=== PATIENT | male | born 1955 | race Caucasian/White ===

== ENCOUNTER 2020-06-03 12:04 | Inpatient (IN) ==
[2020-06-03] MEDS ORDERED: ZOFRAN INJ 4 MG VIAL IVP PRN (12:44)
[2020-06-03] MEDS ORDERED: TUSSIONEX PENNKINETIC SUSP PO PRN (12:44)
[2020-06-03 13:12] LABS: BASOPHILS % (AUTO) 0.1 % (0.2-1.0); HEMATOCRIT 46.9 % (42.0-54.0); HEMOGLOBIN 16.5 g/dL (13.5-18.0); LYMPHOCYTES # (AUTO) 0.7 X10^3/uL (1.3-2.9); LYMPHOCYTES % (AUTO) 6.7 % (21.0-51.0); MEAN CORPUSCULAR HEMOGLOBIN 29.3 pg (27.0-34.0); MEAN CORPUSCULAR HGB CONC 35.2 g/dL (33.0-35.0); MEAN CORPUSCULAR VOLUME 83.2 fL (80.0-100.0); MEAN PLATELET VOLUME 7.3 fL (7.4-11.0); MONOCYTES # (AUTO) 0.8 x10^3/uL (0.3-0.8); MONOCYTES % (AUTO) 8.1 % (0.0-13.0); NEUTROPHILS # (AUTO) 8.6 x10^3/uL (2.2-4.8); NEUTROPHILS % (AUTO) 85.1 % (42.0-75.0); PLATELET COUNT 192 X10^3/uL (150.0-450.0); RED BLOOD COUNT 5.64 X10^6/uL (4.7-6.0); WHITE BLOOD COUNT 10.1 X10^3/uL (3.6-10.0)
--- NOTE | 2020-06-03 13:20 | RAD ---
HISTORYSOB, BRONCHITISSTUDYCHEST, 1 VIEWCOMPARISONNone availableFINDINGSThe trachea is midline. The cardiac silhouette is unremarkable . The lungs demonstrate some increased interstitial infiltrates in the left lung base suggesting early pneumonia. The bony thorax is unremarkable.IMPRESSIONLeft lower lobe interstitial infiltrates suggesting early pneumonia. Continued follow-up is recommendedElectronically signed by: HUSEYIN RUBIN (Jun 03, 2020 13:19:41)
[2020-06-03 13:23] LABS: ALANINE AMINOTRANSFERASE 25 Units/L (12-78); ALBUMIN 3.8 g/dL (3.4-5.0); ALKALINE PHOSPHATASE 73 Units/L (46-116); ASPARTATE AMINO TRANSFERASE 18 Units/L (15-37); BLOOD UREA NITROGEN 34 mg/dL (7-18); CALCIUM 8.7 mg/dL (8.5-10.1); CARBON DIOXIDE 21.7 mmol/L (21-32); CHLORIDE 99 mmol/L (98-107); COR NA(FOR HYPERGLY) 134 mmol/L (136-145); MAGNESIUM 2.3 mg/dL (1.7-2.9); SODIUM 133 mmol/L (136-145); TOTAL PROTEIN 7.8 g/dL (6.4-8.2); eGFR NON BLACK RACES 41 (>60)
[2020-06-03 13:31] LABS: ABG BASE EXCESS -3.4 mmol/L (-2.0-2.0); ABG HCO3 19.9 mmol/L (22-26)
[2020-06-03] MEDS ORDERED: REMDESIVIR 200 MG in NS 250 ML IV 250 ML IV SCH (14:00)
[2020-06-03] MEDS ORDERED: DUONEB 0.5 MG/3 MG (3 mL) NEB ONE (14:19)
[2020-06-03] MEDS: DUONEB 0.5 MG/3 MG (3 mL) NEB SCH ×3 (14:25→21:00)
[2020-06-03] MEDS: PULMICORT NEB TX 0.5 MG NEB SCH ×2 (14:25→21:00)
[2020-06-03] MEDS: ZITHROMAX INJ 500 MG VIAL 500 MG in D5W 250 ML IV 250 ML IV SCH (15:15)
[2020-06-03] MEDS: PROTONIX INJ 40 MG VIAL IVP SCH (15:15)
[2020-06-03] MEDS: SOLU-Medrol 125 MG VIAL IVP SCH ×3 (15:15→21:05)
[2020-06-03] MEDS: ROBITUSSIN DM PO SCH ×3 (15:15→20:45)
[2020-06-03] MEDS: NS 1000 ML 1,000 ML IV SCH (15:15)
[2020-06-03 16:10] VITALS: BMI 25.0
[2020-06-03 17:48] LABS: BILIRUBIN,URINE NEGATIVE (NEGATIVE); BLOOD/HEMOGLOBIN,URINE 1+ (NEGATIVE); GLUCOSE, URINE 4+ (NEGATIVE); KETONES,URINE NEGATIVE (NEGATIVE); LEUKOCYTE ESTERASE ,URINE NEGATIVE (NEGATIVE); NITRITES,URINE NEGATIVE (NEGATIVE); PROTEIN,URINE 2+ (NEGATIVE); UROBILINOGEN,URINE NORMAL (NORMAL)
[2020-06-03 17:57] LABS: AMORPHOUS SEDIMENT,UR 1+ /HPF (NEGATIVE); APPEARANCE,URINE SLIGHTLY HAZY (CLEAR); BACTERIA,URINE TRACE /HPF (NEGATIVE); COLOR,URINE YELLOW (YELLOW); HYALINE CASTS, URINE FEW /LPF (NEGATIVE); RBC,URINE NONE SEEN /HPF (0-3); SQUAMOUS EPITHELIAL CELL,UR RARE /HPF (NEGATIVE)
--- NOTE | 2020-06-03 18:11 | DR.H&P ---
H&P - History & Physical for Day of: H&P Date: 06/03/20 - Chief Complaint Chief Complaint: FEVER, CCC, DEHYDRATION, SOB - History of Present Illness History of Present Illness: PT IS 64 WM DIRECT ADMIT FROM DR GUIDRY OFFICE AFTER PRESENTING WITH CO CCC, FEVER AND FLU LIKE SYMPTOMS FOR OVER A WEEK. PT STATES HE STARTED ZITHROMAX 500MG PO AND MEDROL DOSE PACK LAST WEEK WITH CONTINUED WHEEZING, UNABLE TO EAT, GENERALIZED WEAKNESS. PT BP IN OFFICE 80/60. PT REPORTS "JEANNINE NEVER BEEN THIS SICK". PT HAS PMH OF HTN, OA AND INSOMNIA. PT ADMITTED FOR TREATMENT OF ACUTE ILLNESS, SOB R/O COVID 19 - Past Medical History Past Medical History: Arthritis, GERD, Hypertension - Past Surgical History Surgical History: Ortho Surgery - Family History Family Medical History: Diabetes Mellitus, Cancer - Social History Does patient currently use any type of tobacco product: No Have you used tobacco products in the last 12 months: No Type of Tobacco Use: None Alcohol Use: None Drug Use: None - Medications Home Medications: Penicillins Allergy (Verified 06/03/20 16:08) CONTINUE taking the following medications azithromycin 500 mg PO DAILY 06/03/20 [History] budesonide-formoterol [Symbicort] 2 puff INHALATION BID 06/03/20 [History] eszopiclone 3 mg PO DAILY 06/03/20 [History] ibuprofen 800 mg PO .12HRS PRN 06/03/20 [History] methylprednisolone See Rx Instructions .ROUTE .COMPLEX 06/03/20 [History] testosterone cypionate 200 mg IM .[id number] 06/03/20 [History] tizanidine 4 mg PO TID PRN 06/03/20 [History] tramadol 50 mg PO TID 06/03/20 [History] valsartan 320 mg PO DAILY 06/03/20 [History] - Review of Systems Constitutional: Fever, Chills, Weakness, Malaise Eyes: No Symptoms Reported ENT: Nose Congestion, Throat Pain Respiratory: Cough, Shortness of Breath, Wheezing Cardiovascular: Chest Pain, Light Headedness Gastrointestinal: Nausea Genitourinary: No Symptoms Reported Musculoskeletal: Back Pain, Leg Pain, Foot Pain Skin: No Symptoms Reported Neurological: Weakness - Physical Exam Vital Signs: Temperature 98.5 F Pulse Rate [Apical] 97 Pulse Rate 87 Respiratory Rate 22 Blood Pressure [Left Arm] 152/71 Blood Pressure 124/79 O2 Sat by Pulse Oximetry 96 Oriented: Normal Eyes: Normal Ear: Normal Nose: Normal Throat: Dry Respiratory: Diminished Throughout, Wheezes Throughout Cardiovascular: Tachycardia : Normal Auscultation: Bowel Sounds: Normal Palpation: Normal Tenderness: Normal Skin: Decreased Turgur Musculoskeletal: Ankle, Foot, Back:Thoracic, Back:Lumbar, Tender Psychiatric: Anxiety Mood Description: Calm Affect: Anxious Speech Pattern: Clear, Appropriate - Assessment/Plan (1) SOB (shortness of breath) Status: Acute Plan: ADMIT, COVID 19 ISOLATION. CARDIAC MONITORING, ADMISSION LABS. CXR, BC, RESP CONSULT, IV ZITHROMAX AND ROCEPHIN. IV HYDRATION, SUPPLEMENTAL O2, ABG ON ADMISSION. VERIFY HOME MEDICATION, IV REMDESIVIR, IV SOLU MEDROL (2) Pneumonia Status: Acute (3) COVID-19 Status: Acute (4) Hypertension Status: Acute (5) Dehydration Status: Acute - Allergies Allergies/Adverse Reactions: Allergies Allergy/AdvReac Type Severity Reaction Status Date / Time Penicillins Allergy Verified 06/03/20 16:08
[2020-06-03] MEDS: ULTRAM PO SCH ×2 (20:45→23:56)
[2020-06-03] MEDS: LOVENOX INJ 40 MG SYR SC SCH (23:53)
[2020-06-04] MEDS: NS 1000 ML 1,000 ML IV SCH ×3 (04:45→17:18)
[2020-06-04] MEDS: ULTRAM PO SCH ×3 (05:51→22:20)
[2020-06-04] MEDS: SOLU-Medrol 125 MG VIAL IVP SCH ×3 (05:51→21:39)
[2020-06-04] MEDS: DUONEB 0.5 MG/3 MG (3 mL) NEB SCH ×4 (08:00→20:35)
[2020-06-04] MEDS: PULMICORT NEB TX 0.5 MG NEB SCH ×2 (08:00→20:35)
[2020-06-04] MEDS: LOVENOX INJ 40 MG SYR SC SCH (08:50)
[2020-06-04] MEDS: DIOVAN TAB 160 MG PO SCH (08:51)
[2020-06-04] MEDS: PROTONIX INJ 40 MG VIAL IVP SCH (08:51)
[2020-06-04] MEDS: ROBITUSSIN DM PO SCH ×4 (08:52→20:20)
[2020-06-04] MEDS: REMDESIVIR 100 MG in NS 250 ML IV 250 ML IV SCH (08:52)
[2020-06-04 09:20] LABS: BASOPHILS % (AUTO) 0.1 % (0.2-1.0); EOSINOPHILS % (AUTO) 0.1 % (0.9-2.9); HEMATOCRIT 45.6 % (42.0-54.0); HEMOGLOBIN 16.1 g/dL (13.5-18.0); LYMPHOCYTES # (AUTO) 0.4 X10^3/uL (1.3-2.9); LYMPHOCYTES % (AUTO) 8.8 % (21.0-51.0); MEAN CORPUSCULAR HEMOGLOBIN 29.6 pg (27.0-34.0); MEAN CORPUSCULAR HGB CONC 35.4 g/dL (33.0-35.0); MEAN CORPUSCULAR VOLUME 83.6 fL (80.0-100.0); MEAN PLATELET VOLUME 7.4 fL (7.4-11.0); MONOCYTES # (AUTO) 0.1 x10^3/uL (0.3-0.8); MONOCYTES % (AUTO) 3.1 % (0.0-13.0); NEUTROPHILS # (AUTO) 4.2 x10^3/uL (2.2-4.8); NEUTROPHILS % (AUTO) 87.9 % (42.0-75.0); PLATELET COUNT 200 X10^3/uL (150.0-450.0); RED BLOOD COUNT 5.45 X10^6/uL (4.7-6.0); WHITE BLOOD COUNT 4.8 X10^3/uL (3.6-10.0)
[2020-06-04 09:34] LABS: ALANINE AMINOTRANSFERASE 25 Units/L (12-78); ALBUMIN 3.7 g/dL (3.4-5.0); ALKALINE PHOSPHATASE 74 Units/L (46-116); ASPARTATE AMINO TRANSFERASE 18 Units/L (15-37); BLOOD UREA NITROGEN 34 mg/dL (7-18); CALCIUM 8.8 mg/dL (8.5-10.1); CARBON DIOXIDE 22.2 mmol/L (21-32); CHLORIDE 100 mmol/L (98-107); COR NA(FOR HYPERGLY) 138 mmol/L (136-145); CREATININE 1.68 mg/dL (0.70-1.30); SODIUM 135 mmol/L (136-145); TOTAL PROTEIN 7.8 g/dL (6.4-8.2); eGFR NON BLACK RACES 44 (>60)
--- NOTE | 2020-06-04 10:18 | RAD ---
HISTORYPNEUMONIA FOLLOW UPSTUDYCHEST x-ray, 1 VIEWCOMPARISONX-ray from previous dayFINDINGSThe trachea is midline. The cardiac silhouette is unremarkable .Bilateral peripheral infiltrates are similar to prior study. Appearance is concerning for possible atypical pneumonia such as COVID-19 infection. No pneumothorax or pleural effusion is seen.No acute bony abnormality is seen.IMPRESSIONPersistent bilateral pneumonia is suspected.Electronically signed by: Raymond Watters (Jun 04, 2020 10:17:28)
[2020-06-04] MEDS: ZITHROMAX INJ 500 MG VIAL 500 MG in D5W 250 ML IV 250 ML IV SCH (11:12)
[2020-06-04] MEDS: VIBRAMYCIN 100 MG in D5W 250 ML IV 250 ML IV SCH ×2 (15:51→20:20)
[2020-06-04] MEDS: ZANAFLEX PO PRN (22:21)
[2020-06-05 04:57] LABS: BASOPHILS % (AUTO) 0.1 % (0.2-1.0); HEMATOCRIT 39.5 % (42.0-54.0); HEMOGLOBIN 13.6 g/dL (13.5-18.0); LYMPHOCYTES # (AUTO) 0.5 X10^3/uL (1.3-2.9); LYMPHOCYTES % (AUTO) 4.8 % (21.0-51.0); MEAN CORPUSCULAR HEMOGLOBIN 28.9 pg (27.0-34.0); MEAN CORPUSCULAR HGB CONC 34.5 g/dL (33.0-35.0); MEAN CORPUSCULAR VOLUME 83.9 fL (80.0-100.0); MEAN PLATELET VOLUME 7.8 fL (7.4-11.0); MONOCYTES # (AUTO) 0.6 x10^3/uL (0.3-0.8); MONOCYTES % (AUTO) 5.2 % (0.0-13.0); NEUTROPHILS % (AUTO) 89.9 % (42.0-75.0); PLATELET COUNT 226 X10^3/uL (150.0-450.0); RED BLOOD COUNT 4.71 X10^6/uL (4.7-6.0); RED CELL DISTRIBUTION WIDTH 13.1 % (11.6-16.5); WHITE BLOOD COUNT 11.1 X10^3/uL (3.6-10.0)
[2020-06-05 05:07] LABS: CALCIUM 8.5 mg/dL (8.5-10.1); COR CA(FOR HYPOALB) 9.3 mg/dL (8.5-10.1); CREATININE 1.65 mg/dL (0.70-1.30); TOTAL PROTEIN 6.5 g/dL (6.4-8.2)
[2020-06-05 05:12] LABS: ABG BASE EXCESS -5.1 mmol/L (-2.0-2.0); ABG HCO3 19.9 mmol/L (22-26)
[2020-06-05 05:13] LABS: ABG ALLEN TEST POS
[2020-06-05] MEDS: ULTRAM PO SCH ×3 (05:30→21:48)
[2020-06-05] MEDS: SOLU-Medrol 125 MG VIAL IVP SCH ×3 (05:54→21:48)
[2020-06-05] MEDS: NS 1000 ML 1,000 ML IV SCH ×2 (06:09→20:19)
--- NOTE | 2020-06-05 07:06 | RAD ---
HISTORYPNEUMONIASTUDYCHEST, 1 [id number]/03/2020TECHNIQUEAP view of the chestFINDINGSCardiac and mediastinal contours appear within normal limits. Improved appearance of left base airspace disease. There is persistent airspace disease in the right peripheral mid lung. No large pleural effusion or pneumothoraxIMPRESSIONImproved airspace disease in the left base. Persistent airspace disease in the right midlung.Electronically signed by: David Smith (Jun 05, 2020 07:04:53)
[2020-06-05] MEDS ORDERED: PROTONIX INJ 40 MG VIAL ONE (08:35)
[2020-06-05] MEDS: LOVENOX INJ 40 MG SYR SC SCH (08:56)
[2020-06-05] MEDS: PROTONIX INJ 40 MG VIAL IVP SCH (08:56)
[2020-06-05] MEDS: DIOVAN TAB 160 MG PO SCH (08:56)
[2020-06-05] MEDS: ZITHROMAX INJ 500 MG VIAL 500 MG in D5W 250 ML IV 250 ML IV SCH (08:58)
[2020-06-05] MEDS: ROBITUSSIN DM PO SCH ×4 (08:58→20:19)
[2020-06-05] MEDS: REMDESIVIR 100 MG in NS 250 ML IV 250 ML IV SCH (08:58)
[2020-06-05] MEDS: VIBRAMYCIN 100 MG in D5W 250 ML IV 250 ML IV SCH ×2 (09:28→20:19)
[2020-06-05] MEDS: DUONEB 0.5 MG/3 MG (3 mL) NEB SCH ×5 (09:40→21:16)
[2020-06-05] MEDS: PULMICORT NEB TX 0.5 MG NEB SCH ×2 (09:40→21:16)
[2020-06-05] MEDS: ZANAFLEX PO PRN (21:49)
[2020-06-06 04:42] LABS: BASOPHILS % (AUTO) 0 % (0.2-1.0); HEMATOCRIT 37.9 % (42.0-54.0); HEMOGLOBIN 12.9 g/dL (13.5-18.0); LYMPHOCYTES # (AUTO) 0.4 X10^3/uL (1.3-2.9); LYMPHOCYTES % (AUTO) 2.6 % (21.0-51.0); MEAN CORPUSCULAR HGB CONC 34.2 g/dL (33.0-35.0); MEAN CORPUSCULAR VOLUME 84.9 fL (80.0-100.0); MEAN PLATELET VOLUME 7.7 fL (7.4-11.0); MONOCYTES # (AUTO) 0.5 x10^3/uL (0.3-0.8); NEUTROPHILS # (AUTO) 14.5 x10^3/uL (2.2-4.8); NEUTROPHILS % (AUTO) 94.4 % (42.0-75.0); PLATELET COUNT 248 X10^3/uL (150.0-450.0); RED BLOOD COUNT 4.46 X10^6/uL (4.7-6.0); WHITE BLOOD COUNT 15.3 X10^3/uL (3.6-10.0)
[2020-06-06 04:57] LABS: ALBUMIN 2.7 g/dL (3.4-5.0); CALCIUM 8.2 mg/dL (8.5-10.1); COR CA(FOR HYPOALB) 9.2 mg/dL (8.5-10.1); CREATININE 1.6 mg/dL (0.70-1.30); TOTAL PROTEIN 5.9 g/dL (6.4-8.2)
[2020-06-06 05:08] LABS: PLATELET MORPHOLOGY COMMENT NORMAL (NORMAL)
[2020-06-06] MEDS: ULTRAM PO SCH ×3 (05:18→21:19)
[2020-06-06] MEDS: SOLU-Medrol 125 MG VIAL IVP SCH ×2 (05:18→13:52)
--- NOTE | 2020-06-06 06:17 | RAD ---
HISTORYFollow-up pneumoniaSTUDYChest AP [id number]/04/2020FINDINGSHeart is within normal limits in size. The dion are normal. The l ungs remain mildly hypoinflated. There is a small residual peripheral right midlung infiltrate presen t not significantly different from prior examination. The remainder of the lung kumar are clear with the exception of some bibasilar subsegmental atelectasis. No pleural effusions are identified. Bony thorax is unremarkable.IMPRESSIONNo change small residual peripheral right midlung infiltrateBibasila r subsegmental atelectasisElectronically signed by: MAVIS ALMEIDA (Jun 06, 2020 06:15:57)
[2020-06-06] MEDS: DIOVAN TAB 160 MG PO SCH (08:41)
[2020-06-06] MEDS: LOVENOX INJ 40 MG SYR SC SCH (08:42)
[2020-06-06] MEDS: PROTONIX INJ 40 MG VIAL IVP SCH (08:42)
[2020-06-06] MEDS: ROBITUSSIN DM PO SCH ×5 (08:43→21:19)
[2020-06-06] MEDS: REMDESIVIR 100 MG in NS 250 ML IV 250 ML IV SCH (08:44)
[2020-06-06] MEDS: VIBRAMYCIN 100 MG in D5W 250 ML IV 250 ML IV SCH ×2 (08:45→21:19)
[2020-06-06] MEDS: ZITHROMAX INJ 500 MG VIAL 500 MG in D5W 250 ML IV 250 ML IV SCH (08:45)
[2020-06-06] MEDS: PULMICORT NEB TX 0.5 MG NEB SCH ×2 (09:20→21:35)
[2020-06-06] MEDS: DUONEB 0.5 MG/3 MG (3 mL) NEB SCH ×4 (09:20→21:35)
[2020-06-06] MEDS ORDERED: TYLENOL 325 MG TAB PO PRN (10:22)
[2020-06-06] MEDS: NS 1000 ML 1,000 ML IV SCH (13:52)
[2020-06-06] MEDS: ZANAFLEX PO PRN (21:20)
[2020-06-06] MEDS ORDERED: SOLU-Medrol 125 MG VIAL IVP SCH (22:00)
[2020-06-07] MEDS: NS 1000 ML 1,000 ML IV SCH ×2 (03:44→06:30)
[2020-06-07 05:30] LABS: BASOPHILS % (AUTO) 0.1 % (0.2-1.0); HEMATOCRIT 36.8 % (42.0-54.0); HEMOGLOBIN 12.9 g/dL (13.5-18.0); LYMPHOCYTES # (AUTO) 0.5 X10^3/uL (1.3-2.9); LYMPHOCYTES % (AUTO) 3.1 % (21.0-51.0); MEAN CORPUSCULAR HEMOGLOBIN 29.2 pg (27.0-34.0); MEAN CORPUSCULAR HGB CONC 35.1 g/dL (33.0-35.0); MEAN CORPUSCULAR VOLUME 83.4 fL (80.0-100.0); MEAN PLATELET VOLUME 7.1 fL (7.4-11.0); MONOCYTES # (AUTO) 0.7 x10^3/uL (0.3-0.8); MONOCYTES % (AUTO) 4.6 % (0.0-13.0); NEUTROPHILS % (AUTO) 92.2 % (42.0-75.0); PLATELET COUNT 236 X10^3/uL (150.0-450.0); RED BLOOD COUNT 4.41 X10^6/uL (4.7-6.0); RED CELL DISTRIBUTION WIDTH 12.9 % (11.6-16.5); WHITE BLOOD COUNT 16.3 X10^3/uL (3.6-10.0)
[2020-06-07 05:40] LABS: ALBUMIN 2.7 g/dL (3.4-5.0); CALCIUM 8.3 mg/dL (8.5-10.1); COR CA(FOR HYPOALB) 9.3 mg/dL (8.5-10.1); CREATININE 1.51 mg/dL (0.70-1.30); TOTAL PROTEIN 5.6 g/dL (6.4-8.2)
[2020-06-07 05:47] LABS: BAND NEUTROPHILS % 4 % (0-10); PLATELET MORPHOLOGY COMMENT NORMAL (NORMAL)
[2020-06-07] MEDS: ULTRAM PO SCH (05:47)
[2020-06-07 06:30] LABS: ABG ALLEN TEST POS; ABG BASE EXCESS -0.5 mmol/L (-2.0-2.0); ABG HCO3 24.2 mmol/L (22-26)
--- NOTE | 2020-06-07 07:56 | RAD ---
HISTORYPNEUMONIASTUDYCHEST, 1 [id number]/05/2020TECHNIQUEAP view of the chestFINDINGSCardiac and mediastinal contours are stable. Stable scattered airspace and interstitial opacities. No pleural effusion or pneumothorax.IMPRESSIONNo significant change.Electronically signed by: David Smith (Jun 07, 2020 07:55:19)
[2020-06-07] MEDS: LOVENOX INJ 40 MG SYR SC SCH (08:37)
[2020-06-07] MEDS: REMDESIVIR 100 MG in NS 250 ML IV 250 ML IV SCH (08:38)
[2020-06-07] MEDS: VIBRAMYCIN 100 MG in D5W 250 ML IV 250 ML IV SCH (08:38)
[2020-06-07] MEDS: ROBITUSSIN DM PO SCH ×2 (08:38→09:08)
[2020-06-07] MEDS: PROTONIX INJ 40 MG VIAL IVP SCH (08:38)
[2020-06-07] MEDS: ZITHROMAX INJ 500 MG VIAL 500 MG in D5W 250 ML IV 250 ML IV SCH (08:39)
[2020-06-07 08:58] VITALS: BP 143/65
[2020-06-07] MEDS: DUONEB 0.5 MG/3 MG (3 mL) NEB SCH ×2 (09:00→11:55)
[2020-06-07] MEDS: PULMICORT NEB TX 0.5 MG NEB SCH (09:00)
[2020-06-07] MEDS: DIOVAN TAB 160 MG PO SCH (09:27)
[2020-06-07] MEDS ORDERED: KAYEXALATE SUSP PO NR (14:00)
== END 2020-06-07 12:30 | disposition home or self-care (01) | DRG 177 ==
LOC: OBS → ICU 13:39
PROVIDERS: ADMIT Internal Medicine; ATTEND Internal Medicine
DX: R94.4 Abnormal results of kidney function studies; E87.1 Hypo-osmolality and hyponatremia; E86.0 Dehydration; U07.1 COVID-19; K21.9 Gastro-esophageal reflux disease without esophagitis; J12.89 Other viral pneumonia; M19.90 Unspecified osteoarthritis, unspecified site; R06.02 Shortness of breath; N28.9 Disorder of kidney and ureter, unspecified; R79.82 Elevated C-reactive protein (CRP); I10 Essential (primary) hypertension